=== PATIENT | female | born 1945 | race Caucasian/White ===

== ENCOUNTER 2020-03-31 10:35 | Emergency (ER) | payer MEDICARE ==
[~2020-03-31] VITALS: Wt 54.4 kg
[2020-03-31 11:05] LABS: BASO % 0.3 % (0.0-1.0); EOS % 0.3 % (1.0-4.0); HEMATOCRIT 47.6 % (37.0-47.0); LYMPH # 1.9 10*3/uL (1.3-4.4); MEAN CELL VOLUME 80.1 fl (81.0-99.0); MEAN CORPUSCULAR HGB 25.1 pg (27.0-31.0); MEAN CORPUSCULAR HGB CONC 31.3 g/dl (33.0-37.0); MEAN PLATELET VOLUME 10.9 fl (9.6-12.3); MONO % 16.7 % (3.0-9.0); NEUT # 3.1 10*3/uL (2.3-7.9); NEUT % 51.4 % (47.0-73.0); PLATELET COUNT AUTOMATED 219 10*3/uL (130-400); RED BLOOD COUNT 5.94 10*6/uL (4.10-5.10); RED CELL DISTRI WIDTH 15.4 % (0-14.5); WHITE BLOOD COUNT 6.1 10*3/uL (4.8-10.8)
[2020-03-31 11:14] LABS: ACT PARTIAL THROMBO TIME 27.3 SECONDS (20.0-32.1)
[2020-03-31 11:23] LABS: ALBUMIN 3.8 gm/dl (3.1-4.5); CREATININE 1.09 mg/dL (0.55-1.02); POTASSIUM 3.5 mmol/L (3.5-5.1); TOTAL PROTEIN 8.4 gm/dL (6.4-8.2); TROPONIN I 0.019 ng/ml (<0.045)
== END 2020-03-31 19:55 | disposition short-term general hospital (02) ==
LOC: ED 10:35
PROVIDERS: Emergency Medicine
DX: I63.9 Cerebral infarction, unspecified (principal); I48.91 Unspecified atrial fibrillation; I10 Essential (primary) hypertension; I25.10 Atherosclerotic heart disease of native coronary artery without angina pectoris; Z95.5 Presence of coronary angioplasty implant and graft; Z95.0 Presence of cardiac pacemaker; Z79.01 Long term (current) use of anticoagulants

== ENCOUNTER → 2020-06-23 | Outpatient (CLI) | payer MEDICARE | END | disposition home or self-care (01) | LOC: RAD/SH 06-20 09:00 | PROVIDERS: ATTEND Family Medicine | DX: I69.320 Aphasia following cerebral infarction (principal); I69.391 Dysphagia following cerebral infarction; R13.12 Dysphagia, oropharyngeal phase ==

== ENCOUNTER 2021-10-10 15:19 | Emergency (ER) | payer MEDICARE ==
[~2021-10-10] VITALS: Wt 95.3 kg
[2021-10-10 16:05] LABS: BASO # 0.1 10*3/uL (0.0-0.1); BASO % 0.6 % (0.0-1.0); EOS # 0.1 10*3/uL (0.0-0.4); EOS % 1.3 % (1.0-4.0); HEMATOCRIT 49.5 % (37.0-47.0); LYMPH # 3.7 10*3/uL (1.3-4.4); LYMPH % 46.1 % (27.0-41.0); MEAN CELL VOLUME 78.9 fl (81.0-99.0); MEAN CORPUSCULAR HGB 25.7 pg (27.0-31.0); MEAN CORPUSCULAR HGB CONC 32.5 g/dl (33.0-37.0); MEAN PLATELET VOLUME 11.3 fl (9.6-12.3); MONO # 0.6 10*3/uL (0.1-1.0); NEUT # 3.5 10*3/uL (2.3-7.9); NEUT % 44.2 % (47.0-73.0); PLATELET COUNT AUTOMATED 219 10*3/uL (130-400); RED BLOOD COUNT 6.27 10*6/uL (4.10-5.10); RED CELL DISTRI WIDTH 17.6 % (0-14.5)
[2021-10-10 16:20] LABS: ALKALINE PHOSPHATASE 164 U/L (45-117); BUN 22 mg/dl (7-24); CHLORIDE 109 mmol/L (98-107); CPK 70 U/L (26-192); CREATININE 1.03 mg/dL (0.55-1.02); POTASSIUM 3.4 mmol/L (3.5-5.1); SGOT/AST 29 IU/L (3-35); SGPT/ALT 21 U/L (12-78); SODIUM 139 mmol/L (136-145)
[2021-10-10 16:37] LABS: ACT PARTIAL THROMBO TIME 30.5 SECONDS (20.0-32.1); INTERNATIONAL NORM RATIO 1.1 (2.0-3.5)
== END 2021-10-10 18:03 | disposition short-term general hospital (02) ==
LOC: ED 15:19
PROVIDERS: Emergency Medicine
DX: I63.9 Cerebral infarction, unspecified (principal); I62.9 Nontraumatic intracranial hemorrhage, unspecified; R47.01 Aphasia